=== PATIENT | female | born 1935 | race Caucasian/White ===

== ENCOUNTER → 2018-05-12 | Emergency (ER) | payer MEDICARE, OTHER ==
[~2018-05-12] VITALS: Ht 162.6 cm; Wt 87.7 kg
[~2018-05-12] MED LIST: DOCU-28 PO; WHEE1EAC12 MC
[2018-05-12 16:52] VITALS: BP 165/67
== END | disposition home or self-care (01) ==
LOC: ER 16:32
DX: R60.0 Localized edema (principal); E78.00 Pure hypercholesterolemia, unspecified; I10 Essential (primary) hypertension; E11.9 Type 2 diabetes mellitus without complications; Z98.890 Other specified postprocedural states; Z88.8 Allergy status to other drugs, medicaments and biological substances; Z79.899 Other long term (current) drug therapy
CPT/HCPCS: 93971; 99284

== ENCOUNTER 2022-08-12 11:23 | Day surgery (SDC) | payer MEDICARE, MEDICAID ==
[2022-08-09 12:24] LABS: BASOPHILS % (AUTO) 0.8 % (0-1); EOSINOPHILS # (AUTO) 0.1 X10'3 (0-0.9); EOSINOPHILS % (AUTO) 3.4 % (0-6); HEMATOCRIT 36.2 % (35.0-45.0); HEMOGLOBIN 11.9 g/dl (12.0-16.0); LYMPHOCYTES # (AUTO) 0.6 X10'3 (1.1-4.8); LYMPHOCYTES % (AUTO) 15.1 % (21-51); MEAN CORPUSCULAR HEMOGLOBIN 31.4 PG (27.0-31.0); MEAN CORPUSCULAR HGB CONC 32.7 g/dL (33.0-36.5); MEAN CORPUSCULAR VOLUME 95.9 FL (78-98); MONOCYTES # (AUTO) 0.5 X10'3 (0-0.9); MONOCYTES % (AUTO) 11.5 % (2-12); NEUTROPHILS # (AUTO) 2.9 X10'3 (1.8-7.7); NEUTROPHILS % (AUTO) 69.2 % (42-75); PLATELET COUNT 137 X10'3 (140-440); RED BLOOD COUNT 3.78 X10'6 (4.20-5.60); RED CELL DISTRIBUTION WIDTH 18.3 % (11.5-14.5); WHITE BLOOD COUNT 4.2 X10'3 (4.5-11.0)
[2022-08-09 12:39] LABS: APTT 33 SECONDS (22-32)
[2022-08-09 12:40] LABS: ALBUMIN 3.1 G/DL (3.4-5.0); ANION GAP 11 (8-16); BLOOD UREA NITROGEN 49 MG/DL (7-18); BUN/CREATININE RATIO 21.2 (10.0-20.0); CALCIUM 8.9 MG/DL (8.5-10.1); CHLORIDE 105 MMOL/L (99-107); CREATININE 2.31 MG/DL (0.40-0.90); GLUCOSE 212 MG/DL (70-104); POTASSIUM 3.9 MMOL/L (3.5-5.1); SODIUM 142 MMOL/L (135-145); TOTAL CARBON DIOXIDE 26.3 MMOL/L (24-32); eGFR 20 ML/MIN
[2022-08-12] VITALS (10 sets, daily range): BP systolic 91–163; BP diastolic 36–95
[~2022-08-12] VITALS: Ht 162.6 cm; Wt 85.9 kg
[2022-08-12] MEDS ORDERED: normal saline 1000ml 1,000 ML IV SCH (11:55)
[2022-08-12] MEDS ORDERED: fentaNYL/PF 50MCG/1 ML 2ML syringe IV ONE (11:55)
[2022-08-12] MEDS ORDERED: MIDAZolam 1mg/ml 10ml vial IV ONE (11:55)
[2022-08-12] MEDS ORDERED: SITA25TA3 PO (12:02)
[2022-08-12] MEDS ORDERED: CARV-49 PO (12:02)
[2022-08-12] MEDS ORDERED: ALLO100T49 PO (12:02)
[2022-08-12] MEDS ORDERED: antibiotic PO (12:02)
[2022-08-12] MEDS ORDERED: MECO10005 PO (12:02)
[2022-08-12] MEDS ORDERED: ROSU5TAB PO (12:02)
[2022-08-12] MEDS ORDERED: APIX2.5T PO (12:02)
[2022-08-12] MEDS ORDERED: UBID50TA3 PO (12:02)
[2022-08-12] MEDS ORDERED: MULT-1249 PO (12:02)
[2022-08-12] MEDS ORDERED: LEVO100T9 PO (12:02)
[2022-08-12] MEDS ORDERED: LIRA0.6P2 SUBCUT (12:02)
[2022-08-12] MEDS ORDERED: FURO-150 PO (12:02)
[2022-08-12] MEDS ORDERED: LOSA25TA96 PO (12:02)
[2022-08-12] MEDS ORDERED: AMIO200T27 PO (12:02)
== END 2022-08-12 14:35 | disposition home or self-care (01) ==
LOC: SSTAY O 11:23
PROVIDERS: ATTEND Student in an Organized Health Care Education/Training Program
DX: I48.91 Unspecified atrial fibrillation (principal); E11.22 Type 2 diabetes mellitus with diabetic chronic kidney disease; I13.0 Hypertensive heart and chronic kidney disease with heart failure and stage 1 through stage 4 chronic kidney disease, or unspecified chronic kidney disease; I50.9 Heart failure, unspecified; N18.9 Chronic kidney disease, unspecified; I42.0 Dilated cardiomyopathy; G47.33 Obstructive sleep apnea (adult) (pediatric); E05.90 Thyrotoxicosis, unspecified without thyrotoxic crisis or storm; I45.10 Unspecified right bundle-branch block; Z79.01 Long term (current) use of anticoagulants; Z79.899 Other long term (current) drug therapy; Z88.8 Allergy status to other drugs, medicaments and biological substances
CPT/HCPCS: 36415; 80048; 82948; 85025; 85610; 85730; 92960; 93005; J2250; J3010; J7030; A4620